=== PATIENT | female | born 2000 | race Caucasian/White ===

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

== ENCOUNTER 2022-10-06 13:49 | Outpatient (CLI) | payer OTHER ==
[2022-10-06 15:20] LABS: #Basophils 0.1 10x3/uL (0.0-0.2); #Eosinphils 0.2 10x3/uL (0.0-0.5); #Monocytes 0.7 10x3/uL (0.0-1.1); #Neutrophils 3.5 10x3/uL (1.5-8.4); %Basophils 1.1 % (0.0-2.0); %Eosinophils 4.4 % (0.0-6.0); %Lymphocytes 17.4 % (18.0-47.0); %Monocytes 12.8 % (0.0-10.0); %Neutrophils 64.1 % (40.0-75.0); Hemoglobin 13.1 g/dL (12.0-15.5); Mean Corpuscular Hemoglobin 28.5 pg (27.0-33.0); Mean Corpuscular Volume 88.9 fl (81.6-98.3); Mean Platelet Volume 11.9 fl (7.4-10.4); Platelet Count 293 10x3/uL (150-450); RBC Distribution Width 14.6 % (11.5-14.5); White Blood Cell (WBC) Count 5.5 10x3/uL (3.5-10.5)
[2022-10-06 16:29] LABS: BHCG - Serum Negative (NEGATIVE); Pregs Control Background? CLEAR/WHITE (CLR/WHITE); Pregs Control Bar Appear? YES (CONTROL BAR)
== END 2022-10-06 13:50 | disposition home or self-care (01) ==
LOC: LABBT 13:49
PROVIDERS: ATTEND Surgery
DX: Z01.812 Encounter for preprocedural laboratory examination (principal); T81.89XA Other complications of procedures, not elsewhere classified, initial encounter
CPT/HCPCS: 84703; 85025

== ENCOUNTER 2022-10-09 11:07 | Day surgery (SDC) | payer OTHER ==
[2022-10-07 14:19] VITALS: BMI 46.5
[2022-10-09] MEDS ORDERED: Ketorolac Tromethamine 30 MG/ML VIAL ONE (11:54)
[2022-10-09] MEDS ORDERED: Dexamethasone 20 MG/5 ML VIAL ONE (11:54)
[2022-10-09] MEDS ORDERED: Glycopyrrolate 0.2 MG/ML 5 ML SYRINGE ONE (11:54)
[2022-10-09] MEDS ORDERED: PROPOFOL 200 MG/20 ML VIAL ONE (11:54)
[2022-10-09] MEDS ORDERED: Rocuronium Bromide 10 MG/ML (10ML VIAL) ONE (11:54)
[2022-10-09] MEDS ORDERED: Ondansetron PF 4 MG/2 ML Vial ONE (11:54)
[2022-10-09] MEDS ORDERED: Lidocaine 1% PF 5 ML VIAL ONE (11:54)
[2022-10-09] MEDS ORDERED: NEOSTIGMINE 3 MG/3 ML SYR 3 MG/3 ML SYRINGE ONE (11:54)
[2022-10-09] MEDS ORDERED: Neomycin-Polymyxin 1 ML AMP ONE (12:25)
[2022-10-09] MEDS ORDERED: fentaNYL PF 100 MCG/2 ML SYRINGE ONE (12:37)
[2022-10-09] MEDS ORDERED: Midazolam HCl 2 mg/2 ml Vial ONE (12:37)
[2022-10-09] MEDS ORDERED: Sodium Chloride 0.9% 100 ML ONE (12:42)
[2022-10-09] MEDS ORDERED: CEFAZOLIN 2 GM VIAL ONE (12:42)
[2022-10-09] MEDS ORDERED: FENTANYL 50 MCG/ML 1 ML VIAL ONE ×3 (13:39→14:06)
[2022-10-09] MEDS ORDERED: HYDROcodone/Acetaminophen 5/325 mg Tablet ONE (14:51)
== END 2022-10-09 15:34 | disposition home or self-care (01) ==
LOC: SDC 11:07
PROVIDERS: ATTEND Surgery
PROC: 0J9C0ZZ Drainage of Pelvic Region Subcutaneous Tissue and Fascia, Open Approach (ICD-10-PCS; principal; 2022-10-09)
DX: T81.89XA Other complications of procedures, not elsewhere classified, initial encounter (principal); L02.818 Cutaneous abscess of other sites; M79.89 Other specified soft tissue disorders; E66.01 Morbid (severe) obesity due to excess calories; Z68.42 Body mass index [BMI] 45.0-49.9, adult; Y83.8 Other surgical procedures as the cause of abnormal reaction of the patient, or of later complication, without mention of misadventure at the time of the procedure
CPT/HCPCS: 87070; 87102; 87205; 87206; 88304; J2250; J3010; J3490

== ENCOUNTER 2023-06-03 10:04 | Outpatient (CLI) | payer OTHER | END 2023-06-03 10:05 | disposition home or self-care (01) | LOC: BICRAD 10:04 | PROVIDERS: ATTEND Nurse Practitioner Family | DX: S93.401A Sprain of unspecified ligament of right ankle, initial encounter (principal); M93.271 Osteochondritis dissecans, right ankle and joints of right foot ==

== ENCOUNTER 2023-07-02 22:12 | Emergency (ER) | payer OTHER | END 2023-07-02 23:01 | disposition home or self-care (01) | LOC: ERS 22:12 | DX: S70.362A Insect bite (nonvenomous), left thigh, initial encounter (principal); W57.XXXA Bitten or stung by nonvenomous insect and other nonvenomous arthropods, initial encounter | CPT/HCPCS: 99283 ==

== ENCOUNTER 2024-05-09 18:54 | Emergency (ER) | payer OTHER, SELFPAY ==
[2024-05-09 20:48] LABS: Pregnancy Test - Urine (BHCG) Negative (Negative); Pregu Control Background? CLEAR/WHITE (CLR/WHITE); Pregu Control Bar Appear? YES (CONTROL BAR); Specific Gravity 1.011 (1.002-1.036)
[2024-05-09 21:04] LABS: Bilirubin Negative (Negative); Blood, Urine Negative (Negative); CAUTI Indications for Culture Dysuria,urgency,freq; Clarity Clear (Clear); Glucose, Urine (Dipstick) Normal (Negative); Ketone, Urine Negative (Negative); Leukocyte 25 Leu/uL (Negative); Nitrite Negative (Negative); Protein, Urine (Dipstick) Negative (Neg-Trace); RBC/HPF 0-3 HPF (0-3); Specific Gravity, Urine 1.011 (1.002-1.036); Urobilinogen Normal mg/dL (Less than 2); WBC/HPF 0-3 HPF (0-3); pH, Urine 7.5 (5.0-9.0)
[2024-05-09 21:34] LABS: Bacteria/HPF Rare-Few HPF (None Seen)
[2024-05-09 21:35] LABS: Urine Culture Reflex No No
== END 2024-05-09 21:15 | disposition home or self-care (01) ==
LOC: ERS 18:54
DX: L29.2 Pruritus vulvae (principal); I10 Essential (primary) hypertension
CPT/HCPCS: 81001; 81025; 87480; 87510; 87660; 99283